=== PATIENT | male | born 1980 | race Caucasian/White ===

== ENCOUNTER 2023-02-01 12:09 | Outpatient (CLI) | payer BC, SELFPAY ==
[2023-02-01 19:53] LABS: Hematocrit 50.3 % (42.0-52.0); Hemoglobin 16.8 g/dL (14.0-18.0); Mean Corpuscular HGB Conc 33.4 g/dl (32-36); Mean Corpuscular Hemoglobin 29.5 pg (26-34); Mean Corpuscular Volume 88.4 fl (80-100); Platelet Count Result 228 k/mm3 (150-375); Red Blood Count 5.69 M/mm3 (4.6-6.20); Red Cell Distribution Width 12.6 % (11.5-14.5); White Blood Count 5.5 K/mm3 (4.5-10.0)
[2023-02-01 20:23] LABS: Iron 123 ug/dL (49-181)
[2023-02-01 20:33] LABS: Percent Iron Saturation 41 % (20-50)
[2023-02-01 20:41] LABS: Free T4 Free Thyroxine 1.44 ng/mL (0.78-2.19)
[2023-02-01 22:08] LABS: Alanine Aminotransferase 14 U/L (6-50); Albumin Level 4.8 g/dL (3.5-5.1); Alkaline Phosphatase 75 U/L (38-126); Anion Gap 14 mmol/L (8-16); Aspartate Amino Transferase 26 U/L (17-59); Bilirubin,Total 0.9 mg/dL (0.2-1.3); Blood Urea Nitrogen 7 mg/dL (9-20); Calcium 9.8 mg/dL (8.4-10.2); Carbon Dioxide 27 mmol/L (22-30); Chloride 100 mmol/L (98-107); Cholesterol 187 mg/dL (0-200); Estimated Glomerular Filt Rate > 60; Glucose 114 mg/dL (65-110); HDL Direct 56 mg/dL; Potassium 3.7 mmol/L (3.4-5.0); Sodium 141 mmol/L (137-145); Triglycerides 66 mg/dL (<150)
[2023-02-01 22:18] LABS: LDL Cholesterol Direct 103 mg/dL
[2023-02-01 23:13] LABS: Folic Acid 17.9 ng/mL (2.76->20)
== END 2023-02-01 12:10 | disposition home or self-care (01) ==
PROVIDERS: PCP Nurse Practitioner Adult Health; Visit Provider Nurse Practitioner Adult Health
DX: Z13.9 Encounter for screening, unspecified (principal); R00.2 Palpitations; Z78.9 Other specified health status
CPT/HCPCS: 36415; 80053; 80061; 82607; 82728; 82746; 83540; 83550; 84439; 84443; 85027